=== PATIENT | male | born 1970 | race African-American/Black ===

== ENCOUNTER 2017-08-05 09:01 | Day surgery (SDC) | payer OTHER ==
[~2017-08-05 09:01] MED LIST: ZYBAN150 MG PO
--- NOTE | 2017-08-05 10:55 | NUR ---
904-ARRIVED TO OUTPATIENT. ESCORTED TO ROOM. STATES-I CANT DO THIS TODAY, I AM LEAVING. ADVISED PATIENT TO CONTACT DR LANDRY OFFICE TO RESCHEDULE.
[2017-11-08] MEDS ORDERED: WELLBUTRIN XL150 M1 PO (13:44)
[2017-11-09 08:47] VITALS: BMI 23.0
== END 2017-08-05 09:10 | disposition home or self-care (01) ==
LOC: D.OPS 09:01 → D.PAN 11:15 → D.OPS 11:15 → D.PAN 11:30 → D.OPS 12:30
DX: D17.0 Benign lipomatous neoplasm of skin and subcutaneous tissue of head, face and neck (principal); Z01.812 Encounter for preprocedural laboratory examination; Z53.9 Procedure and treatment not carried out, unspecified reason

== ENCOUNTER 2017-09-21 05:27 | Day surgery (SDC) | payer MEDICAID ==
[~2017-09-21] VITALS: Ht 172.7 cm; Wt 65.8 kg
[2017-09-21 09:07] VITALS: BP 130/62; Ht 172.7 cm; Wt 65.8 kg
--- NOTE | 2017-09-21 12:52 | NUR ---
1245--PT VOIDS, IV MEGAN'Scar GARCIA RN
--- NOTE | 2017-09-21 13:16 | NUR ---
1305--DISCHARGE INSTRUCTIONS GIVEN, PT VERBALIZES UNDERSTANDING. PT OFF UNIT VIA URBEN. RADHA KOO
--- NOTE | 2017-09-28 13:40 | OP ---
PATIENT NAME: JUSTINE MATTHEWS MEDICAL RECORD: [id number] :70 LOCATION:[facility] ADMISSION DATE: SURGEON: JEA MCKINNON DPM DATE OF OPERATION: 09/21/2017 PREOPERATIVE DIAGNOSES: 1. Enlarged head of the proximal phalanx, fifth digit, left side. 2. Enlarged base of the fourth digit. 3. Enlarged fourth metatarsal head, left foot. POSTOPERATIVE DIAGNOSES: 1. Enlarged head of the proximal phalanx, fifth digit, left side. 2. Enlarged base of the fourth digit. 3. Enlarged fourth metatarsal head, left foot. PROCEDURES: 1. PIPJ arthroplasty, left fifth digit. 2. Excision of the lateral base of the left fourth digit, proximal phalanx. 3. Lateral partial metatarsal head resection, left fourth metatarsal. ANESTHESIA: General with local infiltrate utilizing lidocaine and Marcaine plain around the fourth and fifth ray 13 cc total. HEMOSTASIS: Left thigh tourniquet at 350 mmHg. PREOPERATIVE DETAILS: The patient was taken to the OR and placed on the operating table in a supine position. This was followed by induction of general anesthesia and the infiltration of local anesthetic. The left extremity was then prepped and draped in the usual aseptic technique followed by exsanguination and inflation of tourniquet. PROCEDURE #1: PIPJ arthroplasty, left fifth digit: A 15-blade was used to create a 1.5 cm linear incision over the dorsal aspect of the PIPJ of the left fifth digit. The incision was deepened down to the extensor longus tendon, which was transected. The head of the proximal phalanx was then delivered and resected with a bone cutter. The wound was flushed. The extensor longus was repaired with 4-0 Rapide. The skin was then repaired with 4-0 Rapide in a subcuticular technique followed by Dermabond. PROCEDURE #2: Partial excision, base of the fourth digit, proximal phalanx: A 15-blade was used to create an incision on the dorsal aspect of the left fourth digit extending past the MPJ to the neck of the fourth metatarsal. The incision was deepened down through subcutaneous tissue. A linear capsulotomy was made in the fourth MPJ exposing the lateral aspect of the base of the fourth digit proximal phalanx. At this time, a sagittal saw was used to resect the lateral third of the base of the proximal phalanx of the fourth digit. The wound was flushed. PROCEDURE #3: Partial excision, left fourth metatarsal head: Utilizing dissection described in #2, a sagittal saw was used to resect approximately 3 mm of the lateral aspect of the head of the fourth metatarsal head. The wound was flushed. The capsule was repaired with 2-0 Vicryl. The subcutaneous tissue was reapproximated with 4-0 Rapide and the skin was closed with 4-0 Rapide in a subcuticular technique followed by Dermabond, Adaptic, 4 x 4 and Conform were used to dress the wounds followed by Coban. Tourniquet was deflated. OPERATIVE REPORT [id number] JUSTINE MATTHEWS POSTOPERATIVE DETAILS: The patient tolerated the procedure well and left the OR with vital signs stable and vascular status at preop levels. The patient was transported to recovery per anesthesia in stable condition. TRANSINT:[id number] Voice Confirmation ID: [id number] DOCUMENT ID: [id number] JAE MCKINNON DPM at 1340 CC: [id number] DICTATION DATE: 09/21/17 1102 LINUX SERVER ADMINISTRATOR: 09/21/17 1152 [facility] 09/21/17 [facility] [address] [place] [address]
[2017-11-08] MEDS ORDERED: WELLBUTRIN XL150 M1 PO (13:44)
== END 2017-09-21 13:05 | disposition home or self-care (01) ==
LOC: D.OPS 05:27 → D.PAN 09:45 → D.OPS 10:00
DX: M89.372 Hypertrophy of bone, left ankle and foot (principal); M20.5X2 Other deformities of toe(s) (acquired), left foot; F17.200 Nicotine dependence, unspecified, uncomplicated; Z01.812 Encounter for preprocedural laboratory examination

== ENCOUNTER 2017-11-09 06:21 | Day surgery (SDC) | payer MEDICAID ==
[~2017-11-09] VITALS: Ht 172.7 cm; Wt 68.5 kg
--- NOTE | ~2017-11-09 | OP ---
PATIENT NAME: JUSTINE MATTHEWS MEDICAL RECORD: [id number] :70 LOCATION:[facility] ADMISSION DATE: SURGEON: JAE MCKINNON DPM DATE OF OPERATION: 11/09/2017 PREOPERATIVE DIAGNOSES: Painful lesion, right fourth interspace secondary to enlarged bone of the fourth and fifth digit and fourth metatarsal. PROCEDURES: 1. PIPJ arthroplasty, right fifth digit. 2. Partial resection, right fourth digit of the proximal medial base. 3. Partial excision, left fourth metatarsal head. ANESTHESIA: Local with general anesthesia utilizing 20 cc total of 1:1 mix of lidocaine and Marcaine plain around the fourth and fifth ray of the right foot. HEMOSTASIS: Right ankle tourniquet at 250 mmHg. PREOPERATIVE DETAILS: The patient was taken to the OR, placed on the operating table in a supine position. This was followed by induction of general anesthesia and infiltration of local anesthetic. The right extremity was then prepped and draped in the usual aseptic technique followed by exsanguination of extremity and inflation of tourniquet. PROCEDURE #1: PIPJ arthroplasty, right fifth digit: A 15-blade was used to create a linear incision over the dorsal aspect of the PIPJ of the right fifth digit, approximately 1.5 cm in length. The incision was deepened down to the extensor longus tendon, which was transected and the head of the proximal phalanx was delivered. A rongeur was used to resect the head of the proximal phalanx and a rasp was used to smooth all areas. Wound was flushed. Extensor longus tendon was repaired with 4-0 Vicryl and the skin was repaired with 4-0 Rapide in a subcuticular technique followed by Dermabond. PROCEDURE #2: Partial resection of the base of the fourth digit proximal aspect lateral side: A 15-blade was used to create a 3.5-cm linear incision over the dorsal lateral aspect of the right fourth MPJ. The incision was deepened down through subcutaneous tissue to the fourth MPJ capsule. A linear capsulotomy was performed and the lateral aspect of the base of the fourth digit was delivered. A sagittal saw was used to resect part of the base of the proximal phalanx of the fourth digit. PROCEDURE #3: Partial met head resection of right fourth metatarsal: Utilizing the same incision as described in #2, a sagittal saw was used to resect the lateral 2 or 3 mm of the head of the fourth metatarsal head. The wound was flushed. The capsule was repaired with 2-0 Vicryl, the subcutaneous tissue with 4-0 Rapide and the skin was closed with 4-0 Rapide in a subcuticular technique followed by Dermabond. Adaptic, 4 x 4, and Conform were used to dress the wound followed by Coban. Tourniquet was deflated. POSTOPERATIVE DETAILS: The patient tolerated the procedure well and left the OR with vital signs stable and vascular status at preop levels. The patient was transported to recovery per anesthesia in stable condition. TRANSINT:[id number] Voice Confirmation ID: [id number] DOCUMENT ID: [id number] OPERATIVE REPORT [id number] JUSTINE MATTHEWS MCKAY DPM CC: [id number] DICTATION DATE: 11/09/17 1041 DEHYDROGENATION OPERATOR HEAD: 11/09/17 1232 [facility] [address] [place] [address]
[~2017-11-09 06:21] MED LIST changes: +WELLBUTRIN XL150 M1 PO
[2017-11-09 08:47] VITALS: BP 127/73; Ht 172.7 cm; Wt 68.5 kg
== END 2017-11-09 14:30 | disposition home or self-care (01) ==
LOC: D.OPS 06:21 → D.PAN 09:30 → D.OPS 09:30
DX: M25.871 Other specified joint disorders, right ankle and foot (principal); M89.371 Hypertrophy of bone, right ankle and foot; M25.571 Pain in right ankle and joints of right foot; Z01.812 Encounter for preprocedural laboratory examination

== ENCOUNTER 2018-02-14 08:07 | Day surgery (SDC) | payer OTHER ==
[~2018-02-14] VITALS: Ht 172.7 cm; Wt 64.4 kg
--- NOTE | ~2018-02-14 | OP ---
PATIENT NAME: JUSTINE MATTHEWS MEDICAL RECORD: [id number] :70 LOCATION:D.OPS ADMISSION DATE: SURGEON: JOSE ISAACS MD DATE OF OPERATION: 02/14/2018 PREOPERATIVE DIAGNOSIS: Lipomas of forehead times 2. POSTOPERATIVE DIAGNOSIS: Lipomas of forehead times 2. PROCEDURE: Excision of lipomas of forehead times 2. SURGEON: Jose Isaacs MD TRANSCRIPTION MANAGER: None. BLOOD LOSS: 100 cc. ANESTHESIA: General. COMPLICATIONS: None. The risks, possible complications, and alternatives to the procedure were explained to the patient. He elects to proceed. The risks specifically include, but was not limited to, bleeding requiring emergency reoperation, infection, recurrence of the lipomas, bruising, bleeding. The patient was conveyed to the operating room electively on 02/14/2018. General anesthesia was induced by the anesthesia staff. The head was sterilely prepped and draped. Incisions were accomplished along creases in order to minimize noticeable scarring. I dissected down to lipomatous tissue, which was removed in its entirety. The left lateral forehead lipoma was excised in its entirety and I was able to visualize this by inspecting in the lipoma cavity. Despite this, there was still a rim of swollen tissue around and I am unable to really account for why that is present. Perhaps it is swelling from the operative procedure itself. Hemostasis was achieved with electrocautery as well as with Rahul. The closure was accomplished with interrupted intracuticular 4-0 Vicryls and then Dermabond. The patient was then conveyed to the postanesthesia care unit after extubation. He did develop some significant swelling underneath the left-sided operative site. A pressure dressing was applied consisting of 4 x 4s and Coban. I will see him in the office in 2-3 weeks. TRANSINT:[id number] Voice Confirmation ID: [id number] DOCUMENT ID: [id number] JOSE ISAACS MD at 1311 CC: HARLAN FERNANDEZ [id number] DICTATION DATE: 02/14/18 1301 POLICE INSPECTOR: 02/14/18 1406 [facility] 02/14/18 [place] [address]
[~2018-02-14 08:07] MED LIST changes: +GABAPENTIN100 MG PO; +OXYCODONE HCL10 MG PO; +VALIUM5 MG PO; +ZOLOFT50 MG PO
[2018-02-14 08:48] VITALS: BP 102/56; Ht 172.7 cm; Wt 64.4 kg
[2018-02-14 10:04] LABS: HEMATOCRIT 34.4 % (42.0-54.0); HEMOGLOBIN 12.3 g/dL (13.5-17.5); MCH 28.9 pg (26.0-34.0); MCHC 35.8 g/dL (31.0-37.0); MCV 80.8 fL (80.0-100.0); MEAN PLATELET VOLUME 9.4 fL (7.4-10.4); RBC 4.26 10x6/uL (4.20-6.10); RDW 13.5 % (11.5-14.5); WBC 8.9 10x3/uL (4.8-10.8)
== END 2018-02-14 15:00 | disposition home or self-care (01) ==
LOC: D.OPS 08:07 → D.PAN 11:30 → D.OPS 11:30
PROVIDERS: Anesthesiology
DX: D17.0 Benign lipomatous neoplasm of skin and subcutaneous tissue of head, face and neck (principal); F17.200 Nicotine dependence, unspecified, uncomplicated; K25.9 Gastric ulcer, unspecified as acute or chronic, without hemorrhage or perforation; Z01.812 Encounter for preprocedural laboratory examination

== ENCOUNTER → 2018-11-02 15:58 | Outpatient (CLI) | payer OTHER ==
[2018-02-14 08:48] VITALS: BMI 21.6
== END | disposition home or self-care (01) ==
LOC: D.MRI 08-30 16:30
DX: M54.5 Low back pain (principal)

== ENCOUNTER 2020-12-10 06:54 | Day surgery (SDC) | payer OTHER ==
[~2020-12-10] VITALS: Ht 172.7 cm; Wt 70.5 kg
--- NOTE | ~2020-12-10 | OP ---
PATIENT NAME: JUSTINE MATTHEWS JR MEDICAL RECORD: [id number] :70 LOCATION:[facility] ADMISSION DATE: SURGEON: JAE MCKINNON DPM DATE OF OPERATION: 12/10/2020 PREOPERATIVE DIAGNOSES: 1. Hallux abductovalgus of right foot. 2. Right first metatarsophalangeal joint arthritis. POSTOPERATIVE DIAGNOSES: 1. Hallux abductovalgus of right foot. 2. Right first metatarsophalangeal joint arthritis. PROCEDURES: 1. Right Joseph bunionectomy. 2. Right first MPJ fusion. ANESTHESIA: Preoperative popliteal block per the anesthesia department. HEMOSTASIS: Right thigh tourniquet at 350 mmHg. PREOPERATIVE DETAILS: The patient was taken to the OR and placed on the operating table in a supine position followed by induction of general anesthesia. The right extremity was then prepped and draped in the usual aseptic technique followed by exsanguination and inflation of the tourniquet. PROCEDURES #1: Right Joseph bunionectomy. A 15-blade was used to create a 4-5 cm linear incision on the dorsal aspect of the first MPJ of the right foot, extending the middle of the proximal phalanx of the hallux. The incision was deepened down through subcutaneous tissue. At this time, a lateral release was performed to reduce the lateral contracture of the transverse and oblique head of the adductor hallucis. This time, a linear capsulotomy was performed dorsally in the first MPJ. Soft tissue was freed from around the MPJ including the medial side where the medial eminence was resected with a bone saw. PROCEDURE #2: Right first MPJ fusion. At this time, a McGlamry scoop elevator was used to free the plantar structures and mobilize the joint. At this time, a K-wire was placed in the shaft of the first metatarsal. A cup reamer was then used to remove the cartilaginous surface. K-wire was removed. K-wire was placed in the proximal phalanx and a cone reamer was used to remove the cartilage from the base of the proximal phalanx. The wound was flushed copiously. The hallux was placed in proper position and a temporary K-wire was placed across the joint. Excellent alignment was noted and a plate was placed, a 5-hole plate across the fusion site with one screw crossing through the plate and across the joint with excellent rigid fixation. There was noted to be excellent alignment of the joint and reduction of the HAV. The wound was flushed. The capsule was repaired with 2-0 Vicryl, the subcutaneous tissue with 4-0 Rapide and the skin was closed with 4-0 Rapide in a subcuticular technique followed by Dermabond, Adaptic, 4 x 4 and conform were used to dress the wound followed by application of modified Gomez compression dressing. The tourniquet was deflated. POSTOPERATIVE DETAILS: The patient tolerated the procedure well and left the OR with vital signs stable and vascular status at preoperative levels. The patient was transported to recovery per anesthesia in stable condition. OPERATIVE REPORT [id number] JUSTINE MATTHEWS JR TRANSINT:[id number] Voice Confirmation ID: [id number] DOCUMENT ID: [id number] JAE MCKINNON DPM CC: [id number] DICTATION DATE: 12/10/20 1120 CRM COORDINATOR: 12/10/202024 [facility] 12/10/20 [facility] [address] [place] [address]
[~2020-12-10 06:54] MED LIST changes: +GABAPENTIN300 MG PO; +KENALOG 0.1 % O15 GM TOPICAL; +LATUDA40 MG PO; +PROTONIX20 MG PO
[2020-12-10 09:20] VITALS: BP 127/79; Ht 172.7 cm; Wt 70.5 kg
--- NOTE | 2020-12-10 12:24 | NUR ---
1220 URINAL PROVIDED, TIME FRAME FOR POST OP STAY 1 HOUR IF CRITERIA IS MET.
== END 2020-12-10 13:20 | disposition home or self-care (01) ==
LOC: D.OPS 06:54
PROVIDERS: ATTEND Podiatrist
DX: M20.11 Hallux valgus (acquired), right foot (principal); M19.071 Primary osteoarthritis, right ankle and foot